=== PATIENT | female | born 1945 | race Caucasian/White ===

== ENCOUNTER 2017-01-18 14:33 | Emergency (ER) | payer OTHER ==
[~2017-01-18] VITALS: Ht 154.9 cm; Wt 52.2 kg
[2017-01-18 14:56] VITALS: BP 159/69
[2017-01-18] MEDS ORDERED: ACETAMINOPHEN 500 MG TAB PO ONE (16:45)
== END 2017-01-18 17:21 | disposition home or self-care (01) ==
LOC: ER 14:33
DX: S61.412A Laceration without foreign body of left hand, initial encounter (principal); S61.411A Laceration without foreign body of right hand, initial encounter; S00.03XA Contusion of scalp, initial encounter; S40.211A Abrasion of right shoulder, initial encounter; M54.2 Cervicalgia; V43.52XA Car driver injured in collision with other type car in traffic accident, initial encounter; Y93.89 Activity, other specified; Y92.89 Other specified places as the place of occurrence of the external cause; Y99.8 Other external cause status
CPT/HCPCS: 70450; 72125; 73502

== ENCOUNTER 2023-08-22 13:48 | Inpatient (IN) | payer OTHER ==
[~2023-08-22] VITALS: Ht 154.9 cm; Wt 63.7 kg
[2023-08-22 14:13] LABS: Basophils # (auto) 0 10 ^3/uL (0-0.2); Basophils % (auto) 0.4 % (0.0-2.0); Eosinophils # (auto) 0 10 ^3/uL (0-0.8); Eosinophils % (auto) 0.7 % (0.0-7.0); Hematocrit 41.1 % (36.0-46.0); Hemoglobin 13.4 g/dL (12.2-16.2); Lymphocytes # (auto) 1.2 10 ^3/uL (0.4-5.4); Lymphocytes % (auto) 18.8 % (10.0-50.0); Mean Corpuscular Hemoglobin 28.5 pg (28.0-32.0); Mean Corpuscular Hgb Conc. 32.5 g/dL (32.0-36.0); Mean Corpuscular Volume 87.8 fL (80.0-100.0); Monocytes # (auto) 0.3 10 ^3/uL (0-1.3); Monocytes % (auto) 4.8 % (0.0-12.0); Neutrophils # (auto) 4.7 10 ^3/uL (1.6-8.6); Neutrophils % (auto) 75.3 % (37.0-80.0); Red Blood Cells 4.68 10^6/uL (4.0-5.20); Red Cell Distribution Width 14.9 % (11.8-14.3); White Blood Cell 6.3 10^3/uL (4.4-10.8)
[2023-08-22 14:32] LABS: INR 1.01 (0.9-1.15); Partial Thromboplastin Time 27.1 SEC (24.5-34.5); Prothrombin Time 10.7 sec (9.3-11.8)
[2023-08-22 14:33] LABS: Urine Bacteria FEW /hpf (None Seen); Urine Blood Negative /uL (Negative); Urine Clarity Clear (Clear); Urine Color Light-Yellow (Yellow); Urine Protein, UAD Negative (Negative); Urine Specific Gravity 1.002 (1.001-1.035); Urine Urobilinogen Normal (Negative); Urine WBC 1 /hpf (0 - 5)
[2023-08-22 14:33] LABS: Alanine Aminotransferase 25 U/L (7-40); Albumin 4.6 g/dL (3.2-4.8); Alkaline Phosphatase 73 U/L (46-116); Anion Gap 6 (5-15); Aspartate Aminotransferase 17 U/L (13-40); BUN/Creatinine Ratio 7.1 (10.0-20.0); Bilirubin, Total 1.3 mg/dL (0.2-1.0); Blood Urea Nitrogen 6 mg/dL (9-23); Calcium 9.9 mg/dL (8.5-10.1); Carbon Dioxide 28 mmol/L (20-30); Chloride 109 mmol/L (98-107); Glucose 92 mg/dL (74-106); Magnesium 2.1 mg/dL (1.6-2.6); Potassium 4.6 mmol/L (3.5-5.1); Sodium 143 mmol/L (136-145)
[2023-08-22 14:34] LABS: Total Protein 7.1 g/dL (5.7-8.2)
[2023-08-22] MEDS: ENOXAPARIN SOD 60 MG/0.6 ML SYRINGE SC ONE (15:41)
[2023-08-22] MEDS: ASPirin 325 MG TAB PO ONE (15:41)
[2023-08-22] MEDS: NITROGLYCERIN 0.4 MG SL TAB SL ONE (15:53)
[2023-08-22 16:00] VITALS: PULSE 64; RESP 13; O2SAT 99
[2023-08-22] MEDS ORDERED: MORPHINE SULFATE INJ 2 MG/ml SYRG IV PRN (19:30)
[2023-08-22] MEDS ORDERED: NITROGLYCERIN 0.4 MG SL TAB SL PRN (19:30)
[2023-08-22] MEDS ORDERED: ONDANSETRON HCL 4 MG/2 ML VIAL IV PRN (19:30)
[2023-08-22] MEDS ORDERED: ACETAMINOPHEN 325 MG TAB PO PRN (19:30)
[2023-08-22 23:04] VITALS: BP 135/62; PULSE 63; RESP 18; TEMP 97.6; O2SAT 97
[2023-08-22 23:44] VITALS: BP 135/62; PULSE 63; RESP 18; TEMP 97.6; O2SAT 97
[2023-08-23] VITALS (8 sets, daily range): BP systolic 118–158; BP diastolic 54–69; PULSE 61–75; RESP 16–19; TEMP 97.3–98; O2SAT 95–96
[2023-08-23 07:04] LABS: Anion Gap 10 (5-15); Basophils # (auto) 0 10 ^3/uL (0-0.2); Basophils % (auto) 0.8 % (0.0-2.0); Carbon Dioxide 25 mmol/L (20-30); Chloride 108 mmol/L (98-107); Eosinophils # (auto) 0.1 10 ^3/uL (0-0.8); Eosinophils % (auto) 2.5 % (0.0-7.0); Hematocrit 38.6 % (36.0-46.0); Hemoglobin 12.7 g/dL (12.2-16.2); Lymphocytes # (auto) 1.6 10 ^3/uL (0.4-5.4); Lymphocytes % (auto) 31.9 % (10.0-50.0); Mean Corpuscular Hemoglobin 28.9 pg (28.0-32.0); Mean Corpuscular Hgb Conc. 32.9 g/dL (32.0-36.0); Monocytes # (auto) 0.5 10 ^3/uL (0-1.3); Monocytes % (auto) 9.8 % (0.0-12.0); Neutrophils # (auto) 2.8 10 ^3/uL (1.6-8.6); Nucleated Red Blood Cells % 0.1 %; Potassium 3.8 mmol/L (3.5-5.1); Red Blood Cells 4.39 10^6/uL (4.0-5.20); Sodium 143 mmol/L (136-145)
[2023-08-23 07:05] LABS: Calcium 9.1 mg/dL (8.5-10.1)
[2023-08-23 07:10] LABS: BUN/Creatinine Ratio 11.5 (10.0-20.0); Blood Urea Nitrogen 9 mg/dL (9-23); Glucose 81 mg/dL (74-106)
[2023-08-23] MEDS: ATORVASTATIN 20 MG TAB PO SCH (10:30)
[2023-08-23] MEDS: ASPirin-EC 81 mg tab PO SCH (10:30)
[2023-08-23] MEDS: ENOXAPARIN SOD 40 MG/0.4 ML SYRINGE SC SCH (10:31)
[2023-08-23] MEDS ORDERED: hydrALAZINE HCL 20 MG/ML VL IV PRN (16:45)
[2023-08-23] MEDS: DOCUSATE SOD 100 MG CAP PO PRN (23:09)
[2023-08-24] VITALS (8 sets, daily range): BP systolic 118–145; BP diastolic 54–66; PULSE 61–78; RESP 16–18; TEMP 97.3–98.3; O2SAT 94–96
[2023-08-24 06:01] LABS: Basophils # (auto) 0 10 ^3/uL (0-0.2); Basophils % (auto) 0.8 % (0.0-2.0); Eosinophils # (auto) 0.1 10 ^3/uL (0-0.8); Eosinophils % (auto) 2.6 % (0.0-7.0); Hematocrit 38.7 % (36.0-46.0); Hemoglobin 12.7 g/dL (12.2-16.2); Lymphocytes # (auto) 1.5 10 ^3/uL (0.4-5.4); Lymphocytes % (auto) 28.6 % (10.0-50.0); Mean Corpuscular Hemoglobin 28.5 pg (28.0-32.0); Mean Corpuscular Hgb Conc. 32.8 g/dL (32.0-36.0); Mean Corpuscular Volume 86.8 fL (80.0-100.0); Monocytes # (auto) 0.5 10 ^3/uL (0-1.3); Monocytes % (auto) 8.4 % (0.0-12.0); Neutrophils # (auto) 3.2 10 ^3/uL (1.6-8.6); Neutrophils % (auto) 59.6 % (37.0-80.0); Red Blood Cells 4.45 10^6/uL (4.0-5.20); White Blood Cell 5.4 10^3/uL (4.4-10.8)
[2023-08-24 06:05] LABS: Chloride 108 mmol/L (98-107); Potassium 4.1 mmol/L (3.5-5.1); Sodium 143 mmol/L (136-145)
[2023-08-24 06:06] LABS: Anion Gap 7 (5-15); Carbon Dioxide 28 mmol/L (20-30)
[2023-08-24 06:07] LABS: Calcium 9.7 mg/dL (8.5-10.1)
[2023-08-24 06:11] LABS: Blood Urea Nitrogen 13 mg/dL (9-23); Glucose 103 mg/dL (74-106)
[2023-08-24 06:19] LABS: BUN/Creatinine Ratio 14.8 (10.0-20.0)
[2023-08-24 17:39] LABS: Urine Bacteria MANY /hpf (None Seen); Urine Blood Negative /uL (Negative); Urine Clarity Clear (Clear); Urine Color Colorless (Yellow); Urine Protein, UAD Negative (Negative); Urine Specific Gravity 1.005 (1.001-1.035); Urine Urobilinogen Normal (Negative); Urine WBC 3 /hpf (0 - 5)
[2023-08-25] VITALS (9 sets, daily range): BP systolic 109–145; BP diastolic 47–86; PULSE 72–81; RESP 16–20; TEMP 97.7–98.3; O2SAT 94–97
[2023-08-25 06:20] LABS: Basophils # (auto) 0 10 ^3/uL (0-0.2); Basophils % (auto) 0.7 % (0.0-2.0); Eosinophils # (auto) 0.1 10 ^3/uL (0-0.8); Eosinophils % (auto) 2.3 % (0.0-7.0); Hematocrit 39.1 % (36.0-46.0); Hemoglobin 13.2 g/dL (12.2-16.2); Lymphocytes # (auto) 1.6 10 ^3/uL (0.4-5.4); Lymphocytes % (auto) 27.5 % (10.0-50.0); Mean Corpuscular Hemoglobin 29.6 pg (28.0-32.0); Mean Corpuscular Hgb Conc. 33.7 g/dL (32.0-36.0); Mean Corpuscular Volume 87.7 fL (80.0-100.0); Monocytes # (auto) 0.6 10 ^3/uL (0-1.3); Monocytes % (auto) 10.3 % (0.0-12.0); Neutrophils # (auto) 3.5 10 ^3/uL (1.6-8.6); Neutrophils % (auto) 59.2 % (37.0-80.0); Nucleated Red Blood Cells % 0.2 %; Red Blood Cells 4.45 10^6/uL (4.0-5.20); Red Cell Distribution Width 14.9 % (11.8-14.3); White Blood Cell 5.8 10^3/uL (4.4-10.8)
[2023-08-25 06:23] LABS: Chloride 108 mmol/L (98-107); Potassium 3.7 mmol/L (3.5-5.1); Sodium 141 mmol/L (136-145)
[2023-08-25 06:24] LABS: Anion Gap 6 (5-15); Carbon Dioxide 27 mmol/L (20-30)
[2023-08-25 06:25] LABS: Calcium 9.4 mg/dL (8.5-10.1)
[2023-08-25 06:29] LABS: Glucose 94 mg/dL (74-106)
[2023-08-25 06:30] LABS: BUN/Creatinine Ratio 15.8 (10.0-20.0); Blood Urea Nitrogen 12 mg/dL (9-23)
[2023-08-25] MEDS: cefTRIAXone 1GM/50ML D5W 50 ML IV SCH (16:19)
[2023-08-26] VITALS (12 sets, daily range): BP systolic 110–140; BP diastolic 50–78; PULSE 62–80; RESP 13–18; TEMP 97.4–98.1; O2SAT 92–97
[2023-08-26 06:34] LABS: Basophils # (auto) 0 10 ^3/uL (0-0.2); Eosinophils # (auto) 0.1 10 ^3/uL (0-0.8); Eosinophils % (auto) 2.5 % (0.0-7.0); Hemoglobin 12.1 g/dL (12.2-16.2); Lymphocytes # (auto) 1.5 10 ^3/uL (0.4-5.4); Mean Corpuscular Hemoglobin 28.8 pg (28.0-32.0); Mean Corpuscular Hgb Conc. 32.7 g/dL (32.0-36.0); Mean Corpuscular Volume 88.1 fL (80.0-100.0); Monocytes # (auto) 0.4 10 ^3/uL (0-1.3); Monocytes % (auto) 8.3 % (0.0-12.0); Neutrophils # (auto) 2.8 10 ^3/uL (1.6-8.6); Neutrophils % (auto) 57.2 % (37.0-80.0); Nucleated Red Blood Cells % 0.1 %; Red Blood Cells 4.19 10^6/uL (4.0-5.20); Red Cell Distribution Width 14.8 % (11.8-14.3)
[2023-08-26 06:46] LABS: Chloride 110 mmol/L (98-107); Potassium 3.8 mmol/L (3.5-5.1); Sodium 140 mmol/L (136-145)
[2023-08-26 06:47] LABS: Anion Gap 6 (5-15); Carbon Dioxide 24 mmol/L (20-30)
[2023-08-26 06:48] LABS: Calcium 8.9 mg/dL (8.7-10.4)
[2023-08-26 06:52] LABS: BUN/Creatinine Ratio 12.7 (10.0-20.0); Blood Urea Nitrogen 9 mg/dL (9-23); Glucose 98 mg/dL (74-106)
[2023-08-26] MEDS: VERAPAMIL 2.5MG/ML INJ 2ML VIAL IV ONE (09:45)
[2023-08-26] MEDS: ANGIOMAX 250 MG VIAL IV ONE (09:45)
[2023-08-26] MEDS: MIDAZOLAM HCL 2MG/2ML 2ml VIAL (1mg/ml) ONE (09:46)
[2023-08-26] MEDS: HEPARIN SODIUM (PORCINE) 5000 UNITS/ML 1ML VIAL ONE (09:46)
[2023-08-26] MEDS: fentaNYL CITRATE 100 MCG/2 ML VL ONE (09:46)
[2023-08-26] MEDS: SODIUM CHL 0.9% 0 ML ONE (09:46)
[2023-08-26] MEDS: IODIXANOL 320MG/ML 100ML BTL IV ONE ×2 (09:53→10:35)
[2023-08-26] MEDS: LIDOCAINE 2%HCL (LOCAL ANESTH.) INJ 20ML MDV ONE (10:34)
[2023-08-26] MEDS ORDERED: CEPH500T PO (16:41)
[2023-08-26] MEDS ORDERED: LEVO88TA2 PO (17:14)
== END 2023-08-26 18:30 | disposition home or self-care (01) | DRG 206 ==
LOC: ER 13:48 → EDBD 13:48 → TELE 19:33 → TELE-EAST 22:30
PROVIDERS: ADMIT Nurse Practitioner Family; ATTEND Internal Medicine
PROC: 4A023N7 Measurement of Cardiac Sampling and Pressure, Left Heart, Percutaneous Approach (ICD-10-PCS; principal; 2023-08-26)
PROC: B211YZZ Fluoroscopy of Multiple Coronary Arteries using Other Contrast (ICD-10-PCS; 2023-08-26)
DX: M94.0 Chondrocostal junction syndrome [Tietze] (principal); N39.0 Urinary tract infection, site not specified; E03.9 Hypothyroidism, unspecified; I10 Essential (primary) hypertension; R79.89 Other specified abnormal findings of blood chemistry; Z90.710 Acquired absence of both cervix and uterus; Z88.2 Allergy status to sulfonamides; Z82.49 Family history of ischemic heart disease and other diseases of the circulatory system; Z83.719 Family history of colon polyps, unspecified; Z79.899 Other long term (current) drug therapy
CPT/HCPCS: 36415; 71045; 80048; 80053; 81001; 83735; 83880; 84484; 85025; 85610; 85730; 93005; 93306; 93458; 99152; 99291; G0378; J2250; Q9967

== ENCOUNTER 2023-11-21 08:21 | Emergency (ER) | payer OTHER ==
[~2023-11-21] VITALS: Ht 152.4 cm; Wt 55.0 kg
[~2023-11-21 08:21] MED LIST: CEPH500T PO; LEVO88TA2 PO
[2023-11-21 08:44] LABS: Basophils # (auto) 0.1 10 ^3/uL (0-0.2); Basophils % (auto) 1.1 % (0.0-2.0); Eosinophils # (auto) 0.1 10 ^3/uL (0-0.8); Eosinophils % (auto) 1.1 % (0.0-7.0); Hematocrit 41.6 % (36.0-46.0); Hemoglobin 14.1 g/dL (12.2-16.2); Lymphocytes # (auto) 1.1 10 ^3/uL (0.4-5.4); Lymphocytes % (auto) 24.8 % (10.0-50.0); Mean Corpuscular Hemoglobin 29.9 pg (28.0-32.0); Mean Corpuscular Hgb Conc. 33.8 g/dL (32.0-36.0); Mean Corpuscular Volume 88.3 fL (80.0-100.0); Monocytes # (auto) 0.3 10 ^3/uL (0-1.3); Monocytes % (auto) 6.5 % (0.0-12.0); Neutrophils % (auto) 66.5 % (37.0-80.0); Nucleated Red Blood Cells % 0.2 %; Red Blood Cells 4.71 10^6/uL (4.0-5.20); Red Cell Distribution Width 15.3 % (11.8-14.3); White Blood Cell 4.6 10^3/uL (4.4-10.8)
[2023-11-21 09:01] LABS: INR 1.05 (0.9-1.15); Partial Thromboplastin Time 28.4 SEC (24.5-34.5); Prothrombin Time 11.1 sec (9.3-11.8)
[2023-11-21 09:07] LABS: Alanine Aminotransferase 17 U/L (7-40); Albumin 4.4 g/dL (3.2-4.8); Alkaline Phosphatase 57 U/L (46-116); Anion Gap 6 (5-15); Aspartate Aminotransferase 10 U/L (13-40); BUN/Creatinine Ratio 10.7 (10.0-20.0); Bilirubin, Total 1.5 mg/dL (0.2-1.0); Blood Urea Nitrogen 8 mg/dL (9-23); Calcium 9.7 mg/dL (8.7-10.4); Carbon Dioxide 27 mmol/L (20-30); Chloride 108 mmol/L (98-107); Glucose 97 mg/dL (74-106); Potassium 3.6 mmol/L (3.5-5.1); Sodium 141 mmol/L (136-145); Total Protein 6.7 g/dL (5.7-8.2)
[2023-11-21 09:31] VITALS: TEMP 97.4
[2023-11-21] MEDS: SODIUM CHLORIDE 0.9% 1,000 ML IV ONE (09:49)
[2023-11-21 09:50] VITALS: PULSE 64; RESP 18; O2SAT 98
[2023-11-21 10:12] LABS: Urine Bacteria None Seen /hpf (None Seen)
[2023-11-21 10:33] LABS: Free T4 (Free Thyroxine) 1.24 ng/dL (0.89-1.76); T3 Total 0.76 ng/mL (0.60-1.81)
[2023-11-21 10:35] LABS: Urine Blood Negative /uL (Negative); Urine Clarity Clear (Clear); Urine Color Light-Yellow (Yellow); Urine Protein, UAD Negative (Negative); Urine Specific Gravity 1.003 (1.001-1.035); Urine Urobilinogen Normal (Negative); Urine WBC <1 /hpf (0 - 5); Urine pH 6.5 (5.0-9.0)
[2023-11-21] MEDS: ASPirin 81 mg TAB PO ONE (10:50)
[2023-11-21 12:06] VITALS: BP 139/56; PULSE 58; RESP 16; O2SAT 95
== END 2023-11-21 13:57 | disposition home or self-care (01) ==
LOC: ER 08:21
DX: R00.2 Palpitations (principal); T38.1X5A Adverse effect of thyroid hormones and substitutes, initial encounter; E86.0 Dehydration; R79.89 Other specified abnormal findings of blood chemistry; Z90.710 Acquired absence of both cervix and uterus; Z88.5 Allergy status to narcotic agent; Z88.2 Allergy status to sulfonamides; Z79.899 Other long term (current) drug therapy; Y92.89 Other specified places as the place of occurrence of the external cause
CPT/HCPCS: 36415; 71045; 80053; 81001; 84439; 84443; 84480; 84484; 85025; 85610; 85730; 93005; 96360; 99285; J7030

== ENCOUNTER 2024-12-15 10:11 | Inpatient (IN) | payer OTHER ==
[~2024-12-15] VITALS: Ht 152.4 cm; Wt 56.8 kg
--- NOTE | 2024-12-15 10:23 | ED.PDOC ---
History of Present Illness HPI Comments 79-year-old female with a history of hypothyroidism brought in by son complaining of dizziness and nausea for the past 2-3 months, worse over the past several days. The dizziness is described as feeling off balance," is worse with movement, and is alleviated by lying down. Patient states she recently underwent MRI of the brain last week for evaluation of the symptoms, but has not yet received the results. She visited urgent care due to the symptoms and was told her blood pressure was elevated. She recorded her blood pressure over several days, showing it was elevated up to the 180s systolic. She saw the nurse practitioner at her primary physician's office, who prescribed hydrochlo rothiazide which improved her blood pressure, however patient states the symptoms became worse after she started taking the hydrochlorothiazide. She denies vision changes, headache, vomiting or focal weakness. Chief Complaint: Dizziness Time Seen by MD: 10:22 Primary Care Provider: SUDHA Reviewed Notes: Nurses Notes, Medications, Allergies Allergies: Coded Allergies: Codeine (Verified Allergy, Unknown, 08/22/23) Sulfa Antibiotics (Verified Allergy, Unknown, 08/22/23) Home Meds Active Scripts Cephalexin Monohydrate (Cephalexin) 500 Mg Tab, 1 TAB PO TID, #9 TAB Prov:MAGGIE DOWD MD 08/26/23 Reported Medications Levothyroxine Sodium (Synthroid) 88 Mcg Tab, 1 TAB PO DAILY 08/26/23 Information Source: Patient Mode of Arrival: Ambulatory Severity: Moderate Timing: Months Duration: Since onset Prehospital treatment: None Past Medical History PAST MEDICAL HISTORY: HTN, Thyroid Surgical History: Hysterectomy 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 Family History Family History: Unknown Social History Smoker: Non-Smoker Alcohol: Denies ETOH Use Drugs: Denies Drug Use Lives In: Home Constitutional: denies: chills, diaphoresis, fatigue, fever, malaise, sweats, weakness, others EENTM: denies: blurred vision, double vision, ear bleeding, ear discharge, ear drainage, ear pain, ear ringing, eye pain, eye redness, hearing loss, mouth pain, mouth swelling, nasal discharge, nose bleeding, nose congestion, nose pain, photophobia, tearing, throat pain, throat swelling, voice changes, others Respiratory: denies: cough, hemoptysis, orthopnea, SOB at rest, shortness of breath, SOB with excertion, stridor, wheezing, others Cardiovascular: denies: chest pain, dizzy spells, diaphoresis, Dyspnea on exert ion, edema, irregular heart beat, left arm pain, lightheadedness, palpitations, PND, syncope, others Gastrointestinal: reports: nausea, vomiting; denies: abdomen distended, abdominal pain, blood streaked bowels, constipated, diarrhea, dysphagia, difficulty swallowing, hematemesis, melena, poor appetite, poor fluid intake, rectal bleeding, rectal pain, others Genitourinary: denies: abnormal vagina bleeding, burning, dyspareunia, dysuria, flank pain, frequency, hematuria, incontinence, pain, , vagina discharge, urgency, others Neurological: reports: dizziness; denies: fainting, headache, left sided numbness, left sided weakness, numbness, paresthesia, pre-existing deficit, right sided numbness, right sided weakness, seizure, speech problems, tingling, tremors, weakness, others Musculoskeletal: denies: back pain, gout, joint pain, joint swelling, muscle pa in, muscle stiffness, neck pain, others Integumetry: denies: bruises, change in color, change in hair/nails, dryness, laceration, lesions, lumps, rash, wounds, others Allergic/Immunocompromised: denies: Difficulty Healing, Frequent Infections, Hives, Itching, others Hematologic/Lymphatic: denies: anemia, blood clots, easy bleeding, easy bruising, swollen glands, others Endocrine: denies: excessive hunger, excessive sweating, excessive thirst, excessive urination, flushing, intolerance to cold, intolerance to heat, unexplained weight gain, unexplained weight loss, others Psychiatric: denies: anxiety, bipolar disorder, depression, hopeless, panic disorder, schizophrenia, sleepless, suicidal, others All Other Systems: Reviewed and Negative Physical Exam General Appearance: Mild Distress HEENT: Other (Pupils and face symmetric. Moist mucous membranes.) Neck: Full Range of Motion, Normal Inspection Respiratory: Lungs Clear, No Accessory Muscle Use, No Respiratory Distress, Normal Breath Sounds Cardiovascular: No Edema, No JVD, Regular Rate/Rhythm Breast Exam: Deferred Gastrointestinal: Non Tender, Soft Genitalia: Deferred Pelvic: Deferred Rectal: Deferred Extremities: Normal inspection, Normal range of motion, Non-tender, No pedal edema Neurologic: Alert (Oriented x4), Normal Affect, Normal Mood, Other (Ambulatory. Anxious.) Cerebellar Function: NOT DONE Reflexes: NOT DONE Skin: Dry, Normal Color, Warm Lymphatic: NOT DONE Was a procedure done? Was a procedure done?: No EKG EKG : Comments Sinus rhythm, rate 69, normal AR and QRS intervals, QTC borderline prolonged at 488, normal QRS, minimal inferior and lateral ST-depression Differential Dx Considerations may include: Vertigo, CVA, TIA, hypovolemia/orthostasis, arrhythmia, AR, electrolyte imbalance, anemia, infection, among others X-Ray, Labs, Meds, VS Vital Signs Date Time Temp Pulse Resp B/P (MAP) Pulse Ox O2 Delivery O2 Flow Rate FiO2 12/15/24 14:59 98.0 73 16 139/77 (97) 98 98.0 12/15/24 14:59 73 16 98 Room Air 12/15/24 10:39 69 12/15/24 10:12 98.5 91 20 122/85 98 98.5 Lab Test 12/15/24 15:09 12/15/24 14:37 12/15/24 12:55 12/15/24 10:50 Range/Units Urine Color Light-yellow Yellow Urine Clarity Clear Clear Urine pH 6.5 5.0-9.0 Urine Specific [place] 1.008 1.001-1.035 Urine Protein Negative Negative Urine Ketones 1+ H Negative Urine Blood Negative Negative /uL Urine Nitrite Negative Negative Urine Bilirubin Negative Negative Urine Urobilinogen Normal Negative mg/dL Urine Leukocyte Esterase Negative Negative /uL Urine RBC 1 0 - 4 /hpf Urine Microscopic WBC < 1 0-5 /HPF Urine Squamous Epithelial Cells None seen <5 /hpf Urine Bacteria None seen None Seen /hpf Urine Glucose Normal Normal mg/dL Troponin I High Sensitivity 50 *H 41 *H 45 *H </=34 ng/L White Blood Count 5.7 4.4-10.8 10^3/uL Red Blood Count 5.12 4.0-5.20 10^6/uL Hemoglobin 15.7 12.2-16.2 g/dL Hematocrit 45.5 36.0-46.0 % Mean Corpuscular Volume 88.9 80.0-100.0 fL Mean Corpuscular Hemoglobin 30.7 28.0-32.0 pg Mean Corpuscular Hemoglobin Concent 34.6 32.0-36.0 g/dL Red Cell Distribution Width 13.6 11.8-14.3 % Platelet Count 240 140-450 10^3/uL Mean Platelet Volume 9.0 6.9-10.8 fL Neutrophils (%) (Auto) 74.6 37.0-80.0 % Lymphocytes (%) (Auto) 17.5 10.0-50.0 % Monocytes (%) (Auto) 6.7 0.0-12.0 % Eosinophils (%) (Auto) 0.8 0.0-7.0 % Basophils (%) (Auto) 0.4 0.0-2.0 % Neutrophils # (Auto) 4.3 1.6-8.6 10 ^3/uL Lymphocytes # (Auto) 1.0 0.4-5.4 10 ^3/uL Monocytes # (Auto) 0.4 0-1.3 10 ^3/uL Eosinophils # (Auto) 0 0-0.8 10 ^3/uL Basophils # (Auto) 0 0-0.2 10 ^3/uL Nucleated Red Blood Cells 0.1 % Sodium Level 132 L 136-145 mmol/L Potassium Level 4.7 3.5-5.1 mmol/L Chloride Level 95 L 98-107 mmol/L Carbon Dioxide Level 28 20-31 mmol/L Anion Gap 9 5-15 Blood Urea Nitrogen 9 9-23 mg/dL Creatinine 0.82 0.550-1.02 mg/dL Glomerular Filtration Rate Calc 72 >90 mL/min BUN/Creatinine Ratio 11.0 10.0-20.0 Serum Glucose 94 74-106 mg/dL Calcium Level 9.6 8.7-10.4 mg/dL Total Bilirubin 2.2 H 0.2-1.0 mg/dL Aspartate Amino Transferase (AST) 20 13-40 U/L Alanine Aminotransferase (ALT) 16 7-40 U/L Alkaline Phosphatase 57 46-116 U/L B-Type Natriuretic Peptide 37.56 0-100 pg/mL Total Protein 7.5 5.7-8.2 g/dL Albumin 4.8 3.2-4.8 g/dL Current Medications Medications (Trade) Dose Ordered Sig/[place] Route Start Time Stop Time Status Last Admin Aspirin 325 mg ONCE ONCE PO 12/15/24 13:00 12/15/24 13:06 DC 12/15/24 15:[address] [address] Ph: [phone] DIAGNOSTIC IMAGING Diagnostic Imaging Report : [id number] Signed PATIENT: SHAHEEN TRAN: [id number] UNIT: [id number] : 1945 LOC: ER ROOM / BED: / AGE / SEX: 79 / F ADM STATUS: REG ER SERVICE 34 ORDERING PHYSICIAN: AFIA DIANE MD PROCEDURE(s): CXRP - CHEST PORTABLE REASON: dizzy ORDER NUMBER(s): [id number], ACCESSION NUMBER(s): [id number] CHEST RADIOGRAPH Indication: Dizzy Technique: Single frontal view of the chest was obtained Comparison: XY CHEST PORTABLE on DOS: 11/21/23, XY CHEST PORTABLE on DOS: 08/22/23 FINDINGS: Lines and Tubes: None Lungs: No focal consolidation. Pleura: No effusion. No pneumothorax. Cardiomediastinal contours: Unremarkable Bones: No acute osseous abnormality. IMPRESSION: 1. No acute cardiopulmonary disease. ATED BY: NUVIA KINNEY MD DICTATED DATE/TIME: 12/15/241122 SIGNED BY: NUVIA KINNEY MD SIGNED DATE/TIME: 12/15/241122 CC: [place] [id number] Ph: [phone] DIAGNOSTIC IMAGING Diagnostic Imaging Report : [id number] Signed PATIENT: SHAHEEN TRANT: [id number] UNIT: [id number] : 1945 LOC: ER ROOM / BED: / AGE / SEX: 79 / F ADM STATUS: REG ER SERVICE 34 ORDERING PHYSICIAN: AFIA DIANE MD PROCEDURE(s): HWOCT - HEAD WITHOUT CONTRAST REASON: dizzy ORDER NUMBER(s): [id number], ACCESSION NUMBER(s): [id number] EXAM: CT HEAD WITHOUT CONTRAST INDICATION: Dizzy TECHNIQUE: CT of the head without intravenous contrast. Coronal and sagittal reformatted images are submitted. Radiation Dose : 1. Head: CT Dose: CTDI volume is 51.1 mGy. Dose-length product is 865.3 mGy*cm The dose indicators for CT are the volume Computed Tomography (CT) Dose Index (CTDIvol) and the Dose Length Product (DLP), and are measured in units of mGy and mGy-cm, respectively. These indicators are not patient dose, but values generated from the CT scanner acquisition factors. The report includes radiation exposure data for exposures received during this examination. All CT scans at this medical facility are performed using dose modulation techniques as appropriate to a performed exam including the following: Automated exposure control was utilized; adjustment of the MA and/or KV according to patient size; and use of iterative reconstruction technique. COMPARISON: MR BRAIN W/O on DOS: 12/09/24 FINDINGS: There is no evidence of acute intracranial hemorrhage, extra-axial collection, mass effect, midline shift, herniation or hydrocephalus. The ventricles, sulci and cisterns are age appropriate. The choe-white differentiation is intact. The visualized paranasal sinuses and mastoid air cells are clear. Bilateral hearing aid noted. No depressed calvarial fracture. The surrounding soft tissues are unremarkable. IMPRESSION: 1. No acute intracranial abnormality. ATED BY: NUVIA KINNEY MD DICTATED DATE/TIME: 12/15/24 1119 SIGNED BY: NUVIA KINNEY MD SIGNED DATE/TIME: 12/15/24 1119 CC: X-Ray, Labs, Meds, VS Comment 79-year-old female with a history of hypothyroidism and on recent treatment with hydrochlorothiazide for hypertension brought in by son complaining of dizziness and nausea for the last 2-3 months, worse over the last several days. Vitals unremarkable Exam remarkable for reproducible symptoms with head movement Rhythm strip independently interpreted by me: Sinus rhythm, rate 69, no ectopy. CT head no acute abnormality Chest x-ray no acute cardiopulmonary disease CBC normal, basic metabolic panel remarkable for sodium 132, chloride 95, BNP normal, troponin 45, UA pending Patient treated with the following in the ED: Meclizine 50 mg p.o., Zofran mg IV, aspirin 325 mg p.o. On re-evaluation patient is not complaining of chest pain, is ambulatory, however has not had any significant change in her dizziness symptoms. EKGs abnormal and troponin is slightly elevated. Plan is to admit the patient for Cardiology and/or neurology evaluation. Case discussed with Dr. Dowd who will admit the patient. Time of 1ST Reevaluation: 10:52 Reevaluation 1ST: Unchanged Patient Education/Counseling: Diagnosis, Treatment Family Education/Counseling: Diagnosis, Treatment SEPSIS Sepsis Screen Date sepsis recognized/suspect: Dec 15, 2024 Time Sepsis recognized/suspect: 101 Recent Procedure: No On Antibiotic Therapy: No Respiratory Rate >20: No Heart Rate >90: No Temp<36 C (96.8 F) or >38.3 C: No SBP <90 or MAP <65 mmHG: No New Acute Mental Status Change: No Is the patient on CPAP, BIPAP,: No Physician Orders Chest Portable (12/15/24 10:35) Electrocardigram (12/15/24 10:35) Head Without Contrast (12/15/24 10:35) Vital Signs Date Time Temp Pulse Resp B/P (MAP) Pulse Ox O2 Delivery O2 Flow Rate FiO2 12/15/24 14:59 98.0 73 16 139/77 (97) 98 98.0 12/15/24 14:59 73 16 98 Room Air 12/15/24 10:39 69 12/15/24 10:12 98.5 91 20 122/85 98 98.5 Laboratory Tests Test 12/15/24 10:50 White Blood Count 5.7 10^3/uL (4.4-10.8) Medications Medications Dose Ordered Sig/[place] Route Start Time Stop Time Status Last Admin Dose Admin Aspirin 325 mg ONCE ONCE PO 12/15/24 13:00 12/15/24 13:06 DC 12/15/24 15:07 Departure 1 Departure Time of Disposition: 12:00 Impression: Primary Impression: Dizziness Additional Impression: Elevated troponin level Disposition: ADMITTED INPATIENT Admit to: Tele Condition: Guarded Critical Care Note Critical Care Time?: No Stability Stability form required: No Heart Score Heart Score: Heart Score Response (Comments) Value History N/A 0 EKG N/A 0 Age N/A 0 Risk Factors N/A 0 Troponin N/A 0 Total 0 I personally scribed for AFIA DIANE MD ([email or web address]) on 12/15/24 at 10:38. Electronically submitted by Violetta Martin ([email or web address]). I personally scribed for AIFA DIANE MD ([facility]) on 12/15/24 at 11:46. Electronically submitted by Violetta Martin ([email or web address]). I personally scribed for AFIA DIANE MD ([email or web address]) on 12/15/24 at 11:47. Electronically submitted by Violetta Martin ([email or web address]). AFIA DIANE MD Dec 15, 2024 10:23
[2024-12-15] MEDS: ONDANSETRON HCL 4 MG/2 ML VIAL IV ONE (10:45)
[2024-12-15 11:06] LABS: Hematocrit 45.5 % (36.0-46.0); Hemoglobin 15.7 g/dL (12.2-16.2); Mean Corpuscular Hemoglobin 30.7 pg (28.0-32.0); Mean Corpuscular Volume 88.9 fL (80.0-100.0); Nucleated Red Blood Cells % 0.1 %
[2024-12-15 11:22] LABS: Alanine Aminotransferase 16 U/L (7-40); Albumin 4.8 g/dL (3.2-4.8); Alkaline Phosphatase 57 U/L (46-116); Anion Gap 9 (5-15); BUN/Creatinine Ratio 11.0 (10.0-20.0); Blood Urea Nitrogen 9 mg/dL (9-23); Calcium 9.6 mg/dL (8.7-10.4); Carbon Dioxide 28 mmol/L (20-31); Glucose 94 mg/dL (74-106); Potassium 4.7 mmol/L (3.5-5.1); Total Protein 7.5 g/dL (5.7-8.2)
--- NOTE | 2024-12-15 11:22 | DVH ---
EXAM: CT HEAD WITHOUT CONTRAST INDICATION: Dizzy TECHNIQUE: CT of the head without intravenous contrast. Coronal and sagittal reformatted images are s ubmitted. Radiation Dose : 1. Head: CT Dose: CTDI volume is 51.1 mGy. Dose-length product is 865.3 mGy*cm The dose indicators for CT are the volume Computed Tomography (CT) Dose Index (CTDIvol) and the Dose Length Product (DLP), and are measured in units of mGy and mGy-cm, respectively. These indicators are not patient dose, but values generated from the CT scanner acquisition factors. The report includes radiation exposure data for exposures received during this examination. All CT scans at this medical facility are performed using dose modulation techniques as appropriate to a performed exam including the following: Automated exposure control was utilized; adjustment of the MA and/or KV according to patient size; and use of iterative reconstruction technique. COMPARISON: MR BRAIN W/O on DOS: 12/09/24 FINDINGS: There is no evidence of acute intracranial hemorrhage, extra-axial collection, mass effect, midline s hift, herniation or hydrocephalus. The ventricles, sulci and cisterns are age appropriate. The choe-white differentiation is intact. The visualized paranasal sinuses and mastoid air cells are clear. Bilateral hearing aid noted. No depressed calvarial fracture. The surrounding soft tissues are unremarkable. IMPRESSION: 1. No acute intracranial abnormality.
[2024-12-15 11:23] LABS: Bilirubin, Total 2.2 mg/dL (0.2-1.0); Chloride 95 mmol/L (98-107); Sodium 132 mmol/L (136-145)
--- NOTE | 2024-12-15 11:26 | DVH ---
CHEST RADIOGRAPH Indication: Dizzy Technique: Single frontal view of the chest was obtained Comparison: XY CHEST PORTABLE on DOS: 11/21/23, XY CHEST PORTABLE on DOS: 08/22/23 FINDINGS: Lines and Tubes: None Lungs: No focal consolidation. Pleura: No effusion. No pneumothorax. Cardiomediastinal contours: Unremarkable Bones: No acute osseous abnormality. IMPRESSION: 1. No acute cardiopulmonary disease.
[2024-12-15] MEDS: MECLIZINE HCL 25 MG TAB PO ONE (12:59)
--- NOTE | 2024-12-15 16:28 | DVHHP2 ---
History of Present Illness Reason for Visit: Dizziness worsening for last few days History of Present Illness 79-year-old female with a known history of hypertension, hypothyroidism who initially presented to the hospital with lightheadedness dizziness which is there for months but getting worse for last few days. In the ER patient was found to have some EKG changes has been as mildly elevated troponin. Patient stated that she has a recently MRI brain but report has not been distress by her primary physician. Currently denying any chest pain palpitations. Denies any near-syncope or passing out spell. Cardiovascular: HTN Endocrine: Hypothyroidism Past Surgical History: None Smoke: No ALCOHOL: none Review of Systems Review of Systems Twelve review of system were negative except mentioned above. 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 Labs/Xrays Labs Test 12/15/24 15:09 12/15/24 14:37 12/15/24 10:50 Range/Units Troponin I High Sensitivity 50 *H </=34 ng/L White Blood Count 5.7 4.4-10.8 10^3/uL Red Blood Count 5.12 4.0-5.20 10^6/uL Hemoglobin 15.7 12.2-16.2 g/dL Hematocrit 45.5 36.0-46.0 % Mean Corpuscular Volume 88.9 80.0-100.0 fL Mean Corpuscular Hemoglobin 30.7 28.0-32.0 pg Mean Corpuscular Hemoglobin Concent 34.6 32.0-36.0 g/dL Red Cell Distribution Width 13.6 11.8-14.3 % Platelet Count 240 140-450 10^3/uL Mean Platelet Volume 9.0 6.9-10.8 fL Neutrophils (%) (Auto) 74.6 37.0-80.0 % Lymphocytes (%) (Auto) 17.5 10.0-50.0 % Monocytes (%) (Auto) 6.7 0.0-12.0 % Eosinophils (%) (Auto) 0.8 0.0-7.0 % Basophils (%) (Auto) 0.4 0.0-2.0 % Neutrophils # (Auto) 4.3 1.6-8.6 10 ^3/uL Lymphocytes # (Auto) 1.0 0.4-5.4 10 ^3/uL Monocytes # (Auto) 0.4 0-1.3 10 ^3/uL Eosinophils # (Auto) 0 0-0.8 10 ^3/uL Basophils # (Auto) 0 0-0.2 10 ^3/uL Nucleated Red Blood Cells 0.1 % Sodium Level 132 L 136-145 mmol/L Potassium Level 4.7 3.5-5.1 mmol/L Chloride Level 95 L 98-107 mmol/L Carbon Dioxide Level 28 20-31 mmol/L Anion Gap 9 5-15 Blood Urea Nitrogen 9 9-23 mg/dL Creatinine 0.82 0.550-1.02 mg/dL Glomerular Filtration Rate Calc 72 >90 mL/min BUN/Creatinine Ratio 11.0 10.0-20.0 Serum Glucose 94 74-106 mg/dL Calcium Level 9.6 8.7-10.4 mg/dL Total Bilirubin 2.2 H 0.2-1.0 mg/dL Aspartate Amino Transferase (AST) 20 13-40 U/L Alanine Aminotransferase (ALT) 16 7-40 U/L Alkaline Phosphatase 57 46-116 U/L B-Type Natriuretic Peptide 37.56 0-100 pg/mL Total Protein 7.5 5.7-8.2 g/dL Albumin 4.8 3.2-4.8 g/dL SEPSIS Sepsis Screen Date sepsis recognized/suspect: Dec 15, 2024 Time Sepsis recognized/suspect: 1012 Recent Procedure: No On Antibiotic Therapy: No Respiratory Rate >20: No Heart Rate >90: No Temp<36 C (96.8 F) or >38.3 C: No SBP <90 or MAP <65 mmHG: No New Acute Mental Status Change: No Is the patient on CPAP, BIPAP,: No Physician Orders Chest Portable (12/15/24 10:35) Urinalysis (12/15/24 10:35) Electrocardigram (12/15/24 10:35) Head Without Contrast (12/15/24 10:35) Admit (12/15/24 16:22) Code Status (12/15/24 16:22) 2 Gm Sodium Diet (12/15/24 Dinner) Hydrocodone-Acet 5/325mg Tab ([place] /32 (12/15/24 16:30) Ondansetron Hcl (Zofran) (12/15/24 16:30) Fall Risk Precautions In Place QSHIFT (12/15/24 16:22) Echo 2d Mode Cardiac Dop (12/15/24 16:22) Condition: Fair (12/15/24 16:22) Acetaminophen Tablet (Tylenol Tablet) (12/15/24 16:30) Morphine Sulfate Injection (12/15/24 16:30) Nitroglycerin Sublingual (Ntrostat Subli (12/15/24 16:30) Morphine Sulfate Injection (12/15/24 16:30) Stat Ekg For Chest Pain (12/15/24 16:22) Notify Md Of Changes From Base (12/15/24 16:22) Transcription Manager For 24 Hours (12/15/24 16:22) Emergency Dysrhythmia Protocol (12/15/24 16:22) Rhythm Strips Once Every Shift (12/15/24 16:22) Oxygen By Nasal Cannula (12/15/24 16:22) Vital Signs Date Time Temp Pulse Resp B/P (MAP) Pulse Ox O2 Delivery O2 Flow Rate FiO2 12/15/24 14:59 98.0 73 16 139/77 (97) 98 98.0 12/15/24 14:59 73 16 98 Room Air 12/15/24 10:39 69 12/15/24 10:12 98.5 91 20 122/85 98 98.5 Laboratory Tests Test 12/15/24 10:50 White Blood Count 5.7 10^3/uL (4.4-10.8) Medications Medications Dose Ordered Sig/[place] Route Start Time Stop Time Status Last Admin Dose Admin Aspirin 325 mg ONCE ONCE PO 12/15/24 13:00 12/15/24 13:06 DC 12/15/24 15:07 325 MG Assessment/Plan Assessment/Plan 79-year-old female with a known history of hypertension, hypothyroidism present ed to the hospital with dizziness and lightheadedness found to have 1. Dizziness suspected benign positional vertigo, request MRI brain report from outpatient 2. Elevated troponin number some ST-T [place] depression rule out acute [place] 3. Hypertension Four hypothyroidism -tele observation, 2D echo cardiology consultation, we will obtain MRI report from outpatient. Plan discussed with: Patient My Orders Orders - MAGGIE DOWD MD Procedure Category Date Status Time Admit ADMIT 12/15/24 Verified 16:22 Code Status CODE 12/15/24 Verified 16:22 2 Gm Sodium Diet DIET 12/15/24 Verified Dinner Hydrocodone-Acet PHA 12/15/24 Verified 5/325mg Tab ([place] 16:30 Ondansetron Hcl PHA 12/15/24 Verified (Zofran) 16:30 Fall Risk Precautions [facility] 12/15/[address] 16:22 Echo 2d Mode Cardiac US 12/15/24 Verified DOP 16:22 Condition: Fair [facility] 12/15/24 Verified 16:22 Acetaminophen Tablet PHA 12/15/24 Verified (Tylenol Tablet) 16:30 Morphine Sulfate [facility] 12/15/24 Verified Injection 16:30 Nitroglycerin [facility] 12/15/24 Verified Sublingual (Ntrostat 16:30 Morphine Sulfate [facility] 12/15/24 Verified Injection 16:30 Stat Ekg For Chest [facility] 12/15/24 Verified Pain 16:22 Notify Md Of Changes [facility] 12/15/24 Verified From Base 16:22 Transcription Manager For [facility] 12/15/24 Verified 24 Hours 16:22 Emergency Dysrhythmia [facility] 12/15/24 Verified Protocol 16:22 Rhythm Strips Once [facility] 12/15/24 Verified Every Shift 16:22 Oxygen By Nasal RT 12/15/24 Verified Cannula 16:22 Date of Service: Dec 15, 2024 Billing Provider: MAGGIE DOWD MD Common Visit Codes: NOT BILLABLE MAGGIE DOWD MD Dec 15, 2024 16:28
[2024-12-15] MEDS ORDERED: ACETAMINOPHEN 325 MG TAB PO PRN (16:30)
[2024-12-15] MEDS ORDERED: HYDROcodone-ACET 5/325MG TAB PO PRN (16:30)
[2024-12-15] MEDS ORDERED: NITROGLYCERIN 0.4 MG SL TAB SL PRN (16:30)
[2024-12-15] MEDS ORDERED: MORPHINE SULFATE INJ 2 MG/ml SYRG IV PRN ×2 (16:30)
[2024-12-15 16:36] LABS: Urine Protein, UAD Negative (Negative)
[2024-12-15 19:43] VITALS: PULSE 68; RESP 16; O2SAT 98
[2024-12-15 20:00] VITALS: BP 127/84; PULSE 64; PULSE 68; RESP 16; TEMP 97.7; O2SAT 98
[2024-12-15 21:00] VITALS: BP_SYST 124; BP_SYST 152; BP_DIAS 66; BP_DIAS 80; PULSE 69; PULSE 83; RESP 18; TEMP 97.8; TEMP 98.2; O2SAT 91; O2SAT 97
[2024-12-16] VITALS (8 sets, daily range): BP systolic 101–121; BP diastolic 38–67; PULSE 62–83; RESP 16–20; TEMP 97.1–98.5; O2SAT 94–97
[2024-12-16] MEDS: LEVOTHYROXINE SODIUM 88 MCG TAB PO SCH (06:19)
--- NOTE | 2024-12-16 07:50 | DVHINCON2 ---
Date of service: Dec 16, 2024 History of Present Illness 79 yo F with hx of mild cad, htn, admitted for dizziness and borderline trop. pt had C wit hme last year Past Medical History reviewed Family History: Bone cancer 19 CHILD Cardiovascular disease G8 SISTER FH: colon polyps 19 CHILD Allergies: Coded Allergies: Codeine (Verified Allergy, Unknown, 08/22/23) Sulfa Antibiotics (Verified Allergy, Unknown, 08/22/23) Home Meds Active Scripts Cephalexin Monohydrate (Cephalexin) 500 Mg Tab, 1 TAB PO TID, #9 TAB Prov:MAGGIE DOWD MD 08/26/23 Reported Medications Levothyroxine Sodium (Synthroid) 88 Mcg Tab, 1 TAB PO DAILY 08/26/23 Current Medications Current Medications Medications (Trade) Dose Ordered Sig/[place] Route PRN Reason Start Time Stop Time Status Last Admin Acetaminophen/ Hydrocodone Bitart ([place] 5/325MG Tab) 1 tab Q4HP PRN PO MODERATE PAIN (4-6 PAIN SCALE) 12/15/24 16:30 Ondansetron HCl (Zofran) 4 mg Q4HP PRN IV NAUSEA / VOMITING 12/15/24 16:30 Acetaminophen (Tylenol Tablet) 650 mg Q6HP PRN PO PAIN SCALE 1-3 OR TEMP>100.4 12/15/24 16:30 Morphine Sulfate 2 mg Q4HPRN PRN IV SEVERE PAIN (7-10 PAIN SCALE) 12/15/24 16:30 Nitroglycerin (Ntrostat Sublingual) 0.4 mg Q5MINP PRN SL FOR CHEST PAIN 12/15/24 16:30 Morphine Sulfate 2 mg Q30M PRN IV FOR CHEST PAIN 12/15/24 16:30 Levothyroxine Sodium (Synthroid Tablet) 88 mcg QAM PO 12/16/24 07:00 12/16/24 06:19 Review of Systems 10 pt ros otherwise negative Vital Signs Vital Signs Date Time Temp Pulse Resp B/P (MAP) Pulse Ox O2 Delivery O2 Flow Rate FiO2 12/16/24 05:00 98.2 66 18 121/62 (81) 95 98.2 12/15/24 20:00 Room Air* 0 21 Physical Exam nad s1 s2 rrr ctab soft ntnd no edema Labs/Diagnostic Data Labs Test 12/15/24 15:09 12/15/24 14:37 12/15/24 10:50 Range/Units Urine Color Light-yellow Yellow Urine Clarity Clear Clear Urine pH 6.5 5.0-9.0 Urine Specific [place] 1.008 1.001-1.035 Urine Protein Negative Negative Urine Ketones 1+ H Negative Urine Blood Negative Negative /uL Urine Nitrite Negative Negative Urine Bilirubin Negative Negative Urine Urobilinogen Normal Negative mg/dL Urine Leukocyte Esterase Negative Negative /uL Urine RBC 1 0 - 4 /hpf Urine Microscopic WBC < 1 0-5 /HPF Urine Squamous Epithelial Cells None seen <5 /hpf Urine Bacteria None seen None Seen /hpf Urine Glucose Normal Normal mg/dL Troponin I High Sensitivity 50 *H </=34 ng/L White Blood Count 5.7 4.4-10.8 10^3/uL Red Blood Count 5.12 4.0-5.20 10^6/uL Hemoglobin 15.7 12.2-16.2 g/dL Hematocrit 45.5 36.0-46.0 % Mean Corpuscular Volume 88.9 80.0-100.0 fL Mean Corpuscular Hemoglobin 30.7 28.0-32.0 pg Mean Corpuscular Hemoglobin Concent 34.6 32.0-36.0 g/dL Red Cell Distribution Width 13.6 11.8-14.3 % Platelet Count 240 140-450 10^3/uL Mean Platelet Volume 9.0 6.9-10.8 fL Neutrophils (%) (Auto) 74.6 37.0-80.0 % Lymphocytes (%) (Auto) 17.5 10.0-50.0 % Monocytes (%) (Auto) 6.7 0.0-12.0 % Eosinophils (%) (Auto) 0.8 0.0-7.0 % Basophils (%) (Auto) 0.4 0.0-2.0 % Neutrophils # (Auto) 4.3 1.6-8.6 10 ^3/uL Lymphocytes # (Auto) 1.0 0.4-5.4 10 ^3/uL Monocytes # (Auto) 0.4 0-1.3 10 ^3/uL Eosinophils # (Auto) 0 0-0.8 10 ^3/uL Basophils # (Auto) 0 0-0.2 10 ^3/uL Nucleated Red Blood Cells 0.1 % Sodium Level 132 L 136-145 mmol/L Potassium Level 4.7 3.5-5.1 mmol/L Chloride Level 95 L 98-107 mmol/L Carbon Dioxide Level 28 20-31 mmol/L Anion Gap 9 5-15 Blood Urea Nitrogen 9 9-23 mg/dL Creatinine 0.82 0.550-1.02 mg/dL Glomerular Filtration Rate Calc 72 >90 mL/min BUN/Creatinine Ratio 11.0 10.0-20.0 Serum Glucose 94 74-106 mg/dL Calcium Level 9.6 8.7-10.4 mg/dL Total Bilirubin 2.2 H 0.2-1.0 mg/dL Aspartate Amino Transferase (AST) 20 13-40 U/L Alanine Aminotransferase (ALT) 16 7-40 U/L Alkaline Phosphatase 57 46-116 U/L B-Type Natriuretic Peptide 37.56 0-100 pg/mL Total Protein 7.5 5.7-8.2 g/dL Albumin 4.8 3.2-4.8 g/dL Assessment borderline trop mild cad dizziness htn Plan/Recommendation pt had normal lvef on echo ecg is SR and normal brain mri was done as outpt fu on this fu neuro eval neuro Plan discussed with: Patient EMILIANO MONTANA MD Dec 16, 2024 07:50
--- NOTE | 2024-12-16 12:16 | ECG ---
[facility] Test Date: 2024-12-15 Test Time: 10:20:05 Pat Name: SHAHEEN TRAN Department: ED Room: 0245T A Gender: F Residential Advisor: mario : 1945 Requested By: AFIA LUNA Order Number: [id number] Reading MD: Long Berrios Measurements Intervals [place] Rate: 69 P: 62 ME: 122 QRS: 82 QRSD: 91 T: 19 QT: 455 QTc: 488 Interpretive Statements Sinus rhythm Borderline right axis deviation Borderline repolarization abnormality Borderline prolonged QT interval Electronically Signed On 12-17-2024 17:01:02 PDT by Long Berrios Please click the below link to view image of tracing.
[2024-12-16] MEDS: ONDANSETRON HCL 4 MG/2 ML VIAL IV PRN (15:07)
[2024-12-16] MEDS: diazePAM 5 MG TAB PO PRN (15:07)
--- NOTE | 2024-12-16 16:47 | DVHPN2 ---
Subjective Patient is complaining of dizziness associated with the nausea. 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 Medications Current Medications Medications Dose Ordered Sig/[place] Route Start Time Stop Time Status Last Admin Dose Admin Acetaminophen/ Hydrocodone Bitart 1 tab Q4HP PRN PO 12/15/24 16:30 Ondansetron HCl 4 mg Q4HP PRN IV 12/15/24 16:30 12/16/24 15:07 4 MG Acetaminophen 650 mg Q6HP PRN PO 12/15/24 16:30 Morphine Sulfate 2 mg Q4HPRN PRN IV 12/15/24 16:30 Nitroglycerin 0.4 mg Q5MINP PRN SL 12/15/24 16:30 Morphine Sulfate 2 mg Q30M PRN IV 12/15/24 16:30 Levothyroxine Sodium 88 mcg QAM PO 12/16/24 07:00 12/16/24 06:19 88 MCG Diazepam 5 mg Q12HP PRN PO 12/16/24 14:45 12/16/24 15:07 5 MG Meclizine HCl 50 mg TIDPRN PRN PO 12/16/24 14:45 Laboratory Results Laboratory Tests 12/15/24 10:50 Urinalysis Test 12/15/24 15:09 Urine Color Light-yellow (Yellow) Urine Clarity Clear (Clear) Urine pH 6.5 (5.0-9.0) Urine Specific [place] 1.008 (1.001-1.035) Urine Protein Negative (Negative) Urine Ketones 1+ (Negative) H Urine Blood Negative /uL (Negative) Urine Nitrite Negative (Negative) Urine Bilirubin Negative (Negative) Urine Urobilinogen Normal mg/dL (Negative) Urine Leukocyte Esterase Negative /uL (Negative) Urine RBC 1 /hpf (0 - 4) Urine Microscopic WBC < 1 /HPF (0-5) Urine Squamous Epithelial Cells None seen /hpf (<5) Urine Bacteria None seen /hpf (None Seen) Urine Glucose Normal mg/dL (Normal) Assessment/Plan Assessment/Plan 79-year-old female with a known history of hypertension, hypothyroidism presented to the hospital with dizziness and lightheadedness found to have 1. Dizziness suspected benign positional vertigo, request MRI brain report from outpatient 2. Elevated troponin number some ST-T [place] depression rule out acute [place] 3. Hypertension 4. Hypothyroidism -cardiac-betancourt stable, add diazepam 5 mg twice a day, meclizine p.r.n., discharge plan. Plan discussed with: Patient My Orders Orders - MAGGIE DOWD MD Procedure Category Date Status Time Diazepam Tablet PHA 12/16/24 In Process (Valium Tablet) 14:45 Meclizine Tablet PHA 12/16/24 In Process (Antivert Tablet) 14:45 Date of Service: Dec 16, 2024 Billing Provider: MAGGIE DOWD MD Common Visit Codes: NOT BILLABLE MAGGIE DOWD MD Dec 16, 2024 16:47
[2024-12-16] MEDS: MECLIZINE HCL 25 MG TAB PO PRN (17:28)
[2024-12-17] VITALS (7 sets, daily range): BP systolic 102–115; BP diastolic 51–71; PULSE 58–75; RESP 18–20; TEMP 97.8–98.6; O2SAT 93–99
--- NOTE | 2024-12-17 12:03 | DVHSR ---
APPROVED REPORT EXAM: Two-dimensional and M-mode echocardiogram with Doppler and color Doppler. Blood Pressure: 121/62 mmHg INDICATION Elevated Trop RISK FACTORS Height: 5', Weight: 100 DIMENSIONS LVDd4.1 (3.8-5.7cm)LA (2D)3.2 (1.9-4.0cm)Aortic Root2.9 (2.0-3.7cm) LVDs3.3 (2.5-4.0cm)LA (MM) (1.9-4.0cm)Aortic Cusp Exc1.4 (1.5-2.0cm) EF (%) 40.0 (55-70%)Rt. Atrium2.7 (1.9-4.0cm)Asc. Aorta3.1 cm IVSd1.0 (0.7-1.1cm)RV (D)2.5 (1.8-2.4cm) PWd0.6 (0.7-1.1cm) Mitral Valve MitralMitral Stenosis E wave0.58m/sMV Mean GR.mmHg A wave0.82m/sMV Peak GR.mmHg E/A ratio0.72D MVAcm2 DECEL [id number] 1/2 Timems Aortic Valve Aortic ValveAortic Stenosis V10.69m/Luis Mean GR.3mmHg V21.12m/Luis Peak GR.5mmHg LVOT Diameter2.0 (1.8-2.4cm)Doppler AVA1.93cm2 Pulmonic Valve V20.76m/s Tricuspid Valve TR Velocity2.04m/s [id number] Other Information Quality : Technically LimitedRhythm : Technically limited study due to body habitus. Conclusion lvef 50 % low normal LV function left atrium enlarged no severe valve abnormalities noted
[2024-12-17] MEDS ORDERED: DIAZ-680 PO (12:42)
[2024-12-17] MEDS ORDERED: MECL-90 PO (12:42)
[2024-12-17] MEDS ORDERED: MECLIZINE HCL 25 MG TAB PO PRN (12:45)
--- NOTE | 2024-12-17 13:10 | DVHDS2 ---
Discharge Summary Date of Admission Dec 15, 2024 at 16:22 Date of Discharge: Dec 17, 2024 Labs/Diagnostic Data: Laboratory Results Test 12/15/24 15:09 12/15/24 14:37 12/15/24 10:50 Urine Color Light-yellow (Yellow) Urine Clarity Clear (Clear) Urine pH 6.5 (5.0-9.0) Urine Specific [place] 1.008 (1.001-1.035) Urine Protein Negative (Negative) Urine Ketones 1+ (Negative) Urine Blood Negative /uL (Negative) Urine Nitrite Negative (Negative) Urine Bilirubin Negative (Negative) Urine Urobilinogen Normal mg/dL (Negative) Urine Leukocyte Esterase Negative /uL (Negative) Urine RBC 1 /hpf (0 - 4) Urine Microscopic WBC < 1 /HPF (0-5) Urine Squamous Epithelial Cells None seen /hpf (<5) Urine Bacteria None seen /hpf (None Seen) Urine Glucose Normal mg/dL (Normal) Troponin I High Sensitivity 50 ng/L (</=34) White Blood Count 5.7 10^3/uL (4.4-10.8) Red Blood Count 5.12 10^6/uL (4.0-5.20) Hemoglobin 15.7 g/dL (12.2-16.2) Hematocrit 45.5 % (36.0-46.0) Mean Corpuscular Volume 88.9 fL (80.0-100.0) Mean Corpuscular Hemoglobin 30.7 pg (28.0-32.0) Mean Corpuscular Hemoglobin Concent 34.6 g/dL (32.0-36.0) Red Cell Distribution Width 13.6 % (11.8-14.3) Platelet Count 240 10^3/uL (140-450) Mean Platelet Volume 9.0 fL (6.9-10.8) Neutrophils (%) (Auto) 74.6 % (37.0-80.0) Lymphocytes (%) (Auto) 17.5 % (10.0-50.0) Monocytes (%) (Auto) 6.7 % (0.0-12.0) Eosinophils (%) (Auto) 0.8 % (0.0-7.0) Basophils (%) (Auto) 0.4 % (0.0-2.0) Neutrophils # (Auto) 4.3 10 ^3/uL (1.6-8.6) Lymphocytes # (Auto) 1.0 10 ^3/uL (0.4-5.4) Monocytes # (Auto) 0.4 10 ^3/uL (0-1.3) Eosinophils # (Auto) 0 10 ^3/uL (0-0.8) Basophils # (Auto) 0 10 ^3/uL (0-0.2) Nucleated Red Blood Cells 0.1 % Sodium Level 132 mmol/L (136-145) Potassium Level 4.7 mmol/L (3.5-5.1) Chloride Level 95 mmol/L (98-107) Carbon Dioxide Level 28 mmol/L (20-31) Anion Gap 9 (5-15) Blood Urea Nitrogen 9 mg/dL (9-23) Creatinine 0.82 mg/dL (0.550-1.02) Glomerular Filtration Rate Calc 72 mL/min (>90) BUN/Creatinine Ratio 11.0 (10.0-20.0) Serum Glucose 94 mg/dL (74-106) Calcium Level 9.6 mg/dL (8.7-10.4) Total Bilirubin 2.2 mg/dL (0.2-1.0) Aspartate Amino Transferase (AST) 20 U/L (13-40) Alanine Aminotransferase (ALT) 16 U/L (7-40) Alkaline Phosphatase 57 U/L (46-116) B-Type Natriuretic Peptide 37.56 pg/mL (0-100) Total Protein 7.5 g/dL (5.7-8.2) Albumin 4.8 g/dL (3.2-4.8) Other Laboratory Tests 12/15/24 10:50 Brief Hx & Hospital Course: 79-year-old female with a known history of hypertension, hypothyroidism presented to the hospital with dizziness and lightheadedness found to have dizziness suspected secondary to benign positional vertigo. Patient's CT head was negative for any acute pathology. Patient's MRI was done as an outpatient which shows no evidence of any acute infarct. Patient is also had some mildly elevated troponin with the ST depression cardiology was consulted. Patient's echo looks good to cardiology recommended no further workup. Neurology was consulted on the curbside who recommended diazepam 5 mg twice a day. Patient's dizziness has been improved may patient was recommended to be follow up as an outpatient with the PCP and Neurology for outpatient vestibular therapy. Patient is currently understand verbalized understanding and agreeable to plan. No driving, no signing legal documents, no playing on machinery while on benzodiazepines that is diazepam. Condition at Discharge: Stable Final Diagnosis/Problems List 79-year-old female with a known history of hypertension, hypothyroidism presented to the hospital with dizziness and lightheadedness found to have 1. Dizziness suspected benign positional vertigo, request MRI brain report from outpatient 2. Elevated troponin number some ST-T [place]ose depression rule out acute ID 3. Hypertension 4. Hypothyroidism Discharge Disposition: Home with Health Services SNF Discharge Will this Physician continue t: No Discharge Instruct/Medications Diet: Cardiac 2g Na,low cholest Activity: See Comment Activity comment: No driving, no signing legal documents, no playing on machinery while on diazepam. Follow Up/Referral: Follow up with the PCP in one week Follow up with the Neurology Dr. Nieves Valles in one week Medications: Meclizine, diazepam as prescribed. New Medications: Diazepam (Valium) 2 Mg Tab 1 TAB PO BID, #6 TAB Meclizine Hcl (Meclizine Hcl) 25 Mg Tab 25 MG PO Q8HPRN PRN, #30 TAB Continued Medications: Levothyroxine Sodium (Synthroid) 88 Mcg Tab 1 TAB PO DAILY Discontinued Medications: Cephalexin Monohydrate (Cephalexin) 500 Mg Tab 1 TAB PO TID, #9 TAB Scheduled Cephalexin Monohydrate (Cephalexin), 1 TAB PO TID Diazepam (Valium), 1 TAB PO BID Levothyroxine Sodium (Synthroid), 1 TAB PO DAILY, (Reported) Scheduled PRN Meclizine Hcl (Meclizine Hcl), 25 MG PO Q8HPRN PRN Discharge Statement: "Patient was advised to return to the ER or call 911 if any headaches, dizziness, shortness of breath, chest pain, abdominal pain, bleeding, fevers, or worsening of medical condition. Patient was counseled about treatment plan, medications, possible side effects, patientverbalized understanding. All questions were answered to the best of my ability. This discharge took greater then 30 minutes in planning, reviewing documentation, counseling the patient, and discussing with other team members." ASSESSMENT ASSESSMENT Assessment 79-year-old female with a known history of hypertension, hypothyroidism presented to the hospital with dizziness and lightheadedness found to have 1. Dizziness suspected benign positional vertigo, request MRI brain report from outpatient 2. Elevated troponin number some ST-T [place] depression rule out acute ID 3. Hypertension 4. Hypothyroidism Date of Service: Dec 17, 2024 Billing Provider: MAGGIE DOWD MD Common Visit Codes: NOT BILLABLE MAGGIE DOWD MD Dec 17, 2024 13:10
== END 2024-12-17 17:15 | disposition home health service (06) | DRG 149 ==
LOC: ER 10:11 → OVERFLOW 16:22 → TELE-EAST 19:46
PROVIDERS: ADMIT Internal Medicine; ATTEND Internal Medicine
DX: H81.10 Benign paroxysmal vertigo, unspecified ear (principal); I21.A1 Myocardial infarction type 2; I10 Essential (primary) hypertension; F32.A Depression, unspecified; E03.9 Hypothyroidism, unspecified; I25.10 Atherosclerotic heart disease of native coronary artery without angina pectoris; Z90.710 Acquired absence of both cervix and uterus; Z83.719 Family history of colon polyps, unspecified; Z82.49 Family history of ischemic heart disease and other diseases of the circulatory system; Z88.5 Allergy status to narcotic agent; Z88.2 Allergy status to sulfonamides
CPT/HCPCS: 36415; 70450; 71045; 80053; 81001; 83880; 84484; 85025; 93005; 93306; G0378; J2405

== ENCOUNTER 2025-01-13 01:04 | Emergency (ER) | payer OTHER ==
[~2025-01-13] VITALS: Ht 152.4 cm; Wt 47.1 kg
[~2025-01-13 01:04] MED LIST changes: -CEPH500T PO; +DIAZ-680 PO; +MECL-90 PO
--- NOTE | 2025-01-13 01:37 | ED.PDOC ---
History of Present Illness HPI Comments 79-year-old female who came to ER for high blood pressure. Patient has a history of hypertension and hypothyroidism. Recently had COVID-19. Patient was taking albuterol nebulizer, 3 times per day, was supposed to stop yesterday, however she took another dose this morning because it made her feel well. Shortly afterwards, patient started feeling jittery, with anxiety and palpitations. Noted that her blood pressure was elevated at Systolic 180s. Upon arrival of the ER blood pressure was 153/99 mm Hg Chief Complaint: High Blood Pressure Time Seen by MD: 01:37 Primary Care Provider: SUDHA Reviewed Notes: Nurses Notes Allergies: Coded Allergies: Codeine (Verified Allergy, Unknown, 08/22/23) Sulfa Antibiotics (Verified Allergy, Unknown, 08/22/23) Home Meds Active Scripts Diazepam (VALIUM) 2 Mg Tab, 1 TAB PO BID, #6 TAB Prov:MAGGIE DOWD MD 12/17/24 Meclizine Hcl (Meclizine Hcl) 25 Mg Tab, 25 MG PO Q8HPRN PRN, #30 TAB Prov:MAGGIE DOWD MD 12/17/24 Reported Medications Levothyroxine Sodium (Synthroid) 88 Mcg Tab, 1 TAB PO DAILY 08/26/23 Information Source: Patient Mode of Arrival: Ambulatory Severity: Moderate Timing: Hours Past Medical History PAST MEDICAL HISTORY: HTN, Thyroid Surgical History: Hysterectomy 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: No 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 TECHNICIAN History Family History Family History: Unknown Social History Smoker: Non-Smoker Alcohol: Denies ETOH Use Drugs: Denies Drug Use Lives In: Home Constitutional: denies: chills, diaphoresis, fatigue, fever, malaise, sweats, weakness, others EENTM: denies: blurred vision, double vision, ear bleeding, ear discharge, ear drainage, ear pain, ear ringing, eye pain, eye redness, hearing loss, mouth pain, mouth swelling, nasal discharge, nose bleeding, nose congestion, nose pain, photophobia, tearing, throat pain, throat swelling, voice changes, others Respiratory: denies: cough, hemoptysis, orthopnea, SOB at rest, shortness of breath, SOB with excertion, stridor, wheezing, others Cardiovascular: reports: palpitations; denies: chest pain, dizzy spells, diaphoresis, Dyspnea on exertion, edema, irregular heart beat, left arm pain, lightheadedness, PND, syncope, others Gastrointestinal: denies: abdomen distended, abdominal pain, blood streaked bowels, constipated, diarrhea, dysphagia, difficulty swallowing, hematemesis, melena, nausea, poor appetite, poor fluid intake, rectal bleeding, rectal pain, vomiting, others Genitourinary: denies: abnormal vagina bleeding, burning, dyspareunia, dysuria, flank pain, frequency, hematuria, incontinence, pain, , vagina discharge, urgency, others Neurological: denies: dizziness, fainting, headache, left sided numbness, left sided weakness, numbness, paresthesia, pre-existing deficit, right sided numbness, right sided weakness, seizure, speech problems, tingling, tremors, weakness, others Musculoskeletal: denies: back pain, gout, joint pain, joint swelling, muscle pain, muscle stiffness, neck pain, others Integumetry: denies: bruises, change in color, change in hair/nails, dryness, laceration, lesions, lumps, rash, wounds, others Allergic/Immunocompromised: denies: Difficulty Healing, Frequent Infections, Hives, Itching, others Endocrine: denies: excessive hunger, excessive sweating, excessive thirst, excessive urination, flushing, intolerance to cold, intolerance to heat, unexplained weight gain, unexplained weight loss, others Psychiatric: reports: anxiety; denies: bipolar disorder, depression, hopeless, panic disorder, schizophrenia, sleepless, suicidal, others Physical Exam General Appearance: No Apparent Distress, Normal HEENT: Normal ENT Inspection, Pharynx Normal, TMs Normal Neck: Full Range of Motion, Non-Tender, Normal, Normal Inspection Respiratory: Chest Non-Tender, Lungs Clear, No Accessory Muscle Use, No Resp iratory Distress, Normal Breath Sounds Cardiovascular: No Edema, No JVD, No Murmur, No Gallop, Normal Peripheral Pulses, Regular Rate/Rhythm Breast Exam: Deferred Gastrointestinal: No Organomegaly, Non Tender, No Pulsatile Mass, Normal Bowel Sounds, Soft Genitalia: Deferred Pelvic: Deferred Rectal: Deferred Extremities: No calf tenderness, Normal capillary refill, Normal inspection, Normal range of motion, Non-tender, No pedal edema Musculoskeletal : Apperance: Normal Neurologic: Alert, intelligence operations II-XII nml as Tested, No Motor Deficits, Normal Affect, Normal Mood, No Sensory Deficits Cerebellar Function: Normal Reflexes: Normal Skin: Dry, Normal Color, Warm Lymphatic: No Adenopathy Was a procedure done? Was a procedure done?: No Differential Dx Considerations may include: Anemia, electrolyte imbalance, anxiety, hypertension X-Ray, Labs, Meds, VS Vital Signs Date Time Temp Pulse Resp B/P (MAP) Pulse Ox O2 Delivery O2 Flow Rate FiO2 01/13/25 03:05 98.2 69 18 138/70 (92) 98 98.2 01/13/25 02:08 68 01/13/25 01:06 97.6 86 16 153/66 95 97.6 Lab Test 01/13/25 02:27 01/13/25 01:39 Range/Units Troponin I High Sensitivity 32 30 </=34 ng/L White Blood Count 7.1 4.4-10.8 10^3/uL Red Blood Count 3.98 L 4.0-5.20 10^6/uL Hemoglobin 12.1 L 12.2-16.2 g/dL Hematocrit 35.2 L 36.0-46.0 % Mean Corpuscular Volume 88.3 80.0-100.0 fL Mean Corpuscular Hemoglobin 30.3 28.0-32.0 pg Mean Corpuscular Hemoglobin Concent 34.3 32.0-36.0 g/dL Red Cell Distribution Width 13.2 11.8-14.3 % Platelet Count 363 140-450 10^3/uL Mean Platelet Volume 8.3 6.9-10.8 fL Neutrophils (%) (Auto) 67.3 37.0-80.0 % Lymphocytes (%) (Auto) 22.1 10.0-50.0 % Monocytes (%) (Auto) 8.0 0.0-12.0 % Eosinophils (%) (Auto) 2.1 0.0-7.0 % Basophils (%) (Auto) 0.5 0.0-2.0 % Neutrophils # (Auto) 4.8 1.6-8.6 10 ^3/uL Lymphocytes # (Auto) 1.6 0.4-5.4 10 ^3/uL Monocytes # (Auto) 0.6 0-1.3 10 ^3/uL Eosinophils # (Auto) 0.1 0-0.8 10 ^3/uL Basophils # (Auto) 0 0-0.2 10 ^3/uL Nucleated Red Blood Cells 0.0 % Sodium Level 141 136-145 mmol/L Potassium Level 4.5 3.5-5.1 mmol/L Chloride Level 102 98-107 mmol/L Carbon Dioxide Level 29 20-31 mmol/L Anion Gap 10 5-15 Blood Urea Nitrogen 9 9-23 mg/dL Creatinine 0.68 0.550-1.02 mg/dL Glomerular Filtration Rate Calc 87 >90 mL/min BUN/Creatinine Ratio 13.2 10.0-20.0 Serum Glucose 106 74-106 mg/dL Calcium Level 9.2 8.7-10.4 mg/dL Total Bilirubin 0.4 0.2-1.0 mg/dL Aspartate Amino Transferase (AST) 17 13-40 U/L Alanine Aminotransferase (ALT) 15 7-40 U/L Alkaline Phosphatase 87 46-116 U/L B-Type Natriuretic Peptide 72.14 0-100 pg/mL Total Protein 7.1 5.7-8.2 g/dL Albumin 4.2 3.2-4.8 g/dL Time of 1ST Reevaluation: 01:29 Reevaluation 1ST: Unchanged Patient Education/Counseling: Diagnosis, Treatment Family Education/Counseling: Diagnosis, Treatment SEPSIS Sepsis Screen Date sepsis recognized/suspect: Jan 13, 2025 Time Sepsis recognized/suspect: 010 Recent Procedure: No On Antibiotic Therapy: No Respiratory Rate >20: No Heart Rate >90: No Temp<36 C (96.8 F) or >38.3 C: No SBP <90 or MAP <65 mmHG: No New Acute Mental Status Change: No Is the patient on CPAP, BIPAP,: No Vital Signs Date Time Temp Pulse Resp B/P (MAP) Pulse Ox O2 Delivery O2 Flow Rate FiO2 01/13/25 03:05 98.2 69 18 138/70 (92) 98 98.2 01/13/25 02:08 68 01/13/25 01:06 97.6 86 16 153/66 95 97.6 Laboratory Tests Test 01/13/25 01:39 White Blood Count 7.1 10^3/uL (4.4-10.8) Departure 1 Departure Time of Disposition: 03:30 Impression: Primary Impression: Adverse drug reaction Additional Impressions: Medication side effect Palpitation Disposition: 01 HOME / SELF CARE / HOMELESS Condition: Stable Discharged With: Self Critical Care Note Critical Care Time?: No Stability Stability form required: No Heart Score Heart Score: Heart Score Response (Comments) Value History N/A 0 EKG N/A 0 Age N/A 0 Risk Factors N/A 0 Troponin N/A 0 Total 0 I personally scribed for SÁNCHEZ WHITTINGTON MD ([email or web address]) on 01/13/25 at 01:37. Electronically submitted by Jerry Elder ([email or web address]). SÁNCHEZ WHITTINGTON MD Jan 13, 2025 01:37
[2025-01-13 01:49] LABS: Hematocrit 35.2 % (36.0-46.0); Hemoglobin 12.1 g/dL (12.2-16.2); Mean Corpuscular Hemoglobin 30.3 pg (28.0-32.0); Mean Corpuscular Volume 88.3 fL (80.0-100.0); Nucleated Red Blood Cells % 0.0 %
[2025-01-13 02:04] LABS: Alanine Aminotransferase 15 U/L (7-40); Alkaline Phosphatase 87 U/L (46-116); Anion Gap 10 (5-15); BUN/Creatinine Ratio 13.2 (10.0-20.0); Calcium 9.2 mg/dL (8.7-10.4); Carbon Dioxide 29 mmol/L (20-31); Chloride 102 mmol/L (98-107); Potassium 4.5 mmol/L (3.5-5.1); Sodium 141 mmol/L (136-145); Total Protein 7.1 g/dL (5.7-8.2)
[2025-01-13 02:05] LABS: Albumin 4.2 g/dL (3.2-4.8); Bilirubin, Total 0.4 mg/dL (0.2-1.0)
[2025-01-13 02:10] LABS: Blood Urea Nitrogen 9 mg/dL (9-23); Glucose 106 mg/dL (74-106)
[2025-01-13 03:05] VITALS: BP 138/70; PULSE 69; RESP 18; TEMP 98.2; O2SAT 98
--- NOTE | 2025-01-13 14:05 | ECG ---
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
== END 2025-01-13 03:36 | disposition home or self-care (01) ==
LOC: ER 01:04
DX: R00.2 Palpitations (principal); T50.905A Adverse effect of unspecified drugs, medicaments and biological substances, initial encounter; I10 Essential (primary) hypertension; F41.9 Anxiety disorder, unspecified; E03.9 Hypothyroidism, unspecified; Z90.710 Acquired absence of both cervix and uterus; Z88.2 Allergy status to sulfonamides; Z79.890 Hormone replacement therapy; Z88.5 Allergy status to narcotic agent; Y92.89 Other specified places as the place of occurrence of the external cause
CPT/HCPCS: 36415; 80053; 83880; 84484; 85025; 93005